=== PATIENT | male | born 1940 ===

== ENCOUNTER 2025-04-15 19:34 | Emergency (ER) | payer MEDICARE, SELFPAY ==
[2025-04-15 19:40] VITALS: BP 151/78; PULSE 84; RESP 20; TEMP 36.7; O2SAT 99
--- NOTE | 2025-04-15 19:54 | ED_ITS ---
HPI - General Adult General Chief complaint: Ear Stated complaint: right ear Source: patient and family Mode of arrival: ambulatory Limitations: no limitations History of Present Illness HPI narrative: Patient presents for evaluation of right ear pain. Symptom onset a few days ago. He has muffled hearing on that side. He denies any drainage from his ear. He does report sinus congestion and a runny nose. No fever, chills, cough, shortness of breath, nausea, vomiting, diarrhea. He did take some Tylenol and ibuprofen for symptoms. Related Data Home Medications ?Medication ?Instructions ?Recorded ?Confirmed ?Last Taken ?Type amlodipine 2.5 mg tablet mg 04/15/25 Unknown History carvedilol 6.25 mg tablet mg 04/15/25 Unknown History hydralazine 25 mg tablet mg 04/15/25 Unknown History Allergies Allergy/AdvReac Type Severity Reaction Status Date / Time No Known Allergies Allergy Verified 04/15/25 19:47 Review of Systems Review of Systems: CONSTITUTIONAL: Denies fever, chills, or sweats. EYES: Denies visual changes, redness, or discharge. ENT: Reports sinus congestion, runny nose, right-sided ear pain and muffled hearing on that side CARDIOVASCULAR: Denies chest pain, palpitations, or edema. RESPIRATORY: Denies cough or dyspnea. GASTROINTESTINAL: Denies abdominal pain, nausea, vomiting, or diarrhea. GENITOURINARY: Denies dysuria or hematuria. SKIN: Denies rash or itching. MUSCULOSKELETAL: Denies back pain, joint pain, or myalgia. NEUROLOGIC: Denies headache, numbness, dizziness, or weakness. PSYCHIATRIC: Denies anxiety or depression. [facility] Past Medical History Medical History Hypertension Surgical History Surgical History Knee joint replacement by other means Family History Family History Father Family history non-contributory Social History Social History Substance use: never Gender identity (if verbalized by the patient): Male Spiritual care concerns: No Exam Narrative: GENERAL: Well-appearing, well-nourished, and in no acute distress. HEAD: Normocephalic, atraumatic. EYES: PERRLA and EOMI. ENT: Nares clear, no rhinorrhea or epistaxis. Mucous membranes moist. Oropharynx without tonsillar hypertrophy exudate or other lesions. Bilateral TMs erythema with effusion present NECK: Supple. No adenopathy or masses. No carotid bruits or JVD CHEST: Clear to auscultation. No respiratory distress. No wheezes rales or rhonchi HEART: Regular rate and rhythm. No murmur heard. Normal peripheral pulses. ABDOMEN: Soft, nontender, nondistended, normal active bowel sounds. EXTREMITIES: Normal range of motion. No edema. SKIN: Warm, dry, no rash. NEURO: No focal deficits. Alert and oriented x3. PSYCH: Normal mood and affect. Course Course Emergency Course: This is an 84-year-old male who presented for evaluation right-sided ear pain. He has evidence of otitis media on exam. Will discharge with Augmentin. Follow-up with primary provider. Go to the ER for worsening symptoms. Patient in agreement with plan of care. Level of Care: Express Care Visit Vital Signs Vital signs: Vital Signs Temperature 36.7 C 04/15/25 19:40 Pulse Rate 04/15/25 19:40 Respiratory Rate 04/15/25 19:40 Blood Pressure 151/78 H 04/15/25 19:40 Pulse Oximetry 99 04/15/25 19:40 Oxygen Delivery Room Air 04/15/25 19:40 Temperature 36.7 C 04/15/25 19:40 Pulse Rate 04/15/25 19:40 Respiratory Rate 04/15/25 19:40 Blood Pressure 151/78 H 04/15/25 19:40 Pulse Oximetry 99 04/15/25 19:40 Oxygen Delivery Room Air 04/15/25 19:40 Medical Decision Making Vital Signs Vital Signs: Vital Signs Temperature 36.7 C 04/15/25 19:40 Pulse Rate 84 04/15/25 19:40 Respiratory Rate 04/15/25 19:40 Blood Pressure 151/78 H 04/15/25 19:40 Pulse Oximetry 99 04/15/25 19:40 Oxygen Delivery Room Air 04/15/25 19:40 Temperature 36.7 C 04/15/25 19:40 Pulse Rate 84 04/15/25 19:40 Respiratory Rate 20 04/15/25 19:40 Blood Pressure 151/78 H 04/15/25 19:40 Pulse Oximetry 99 04/15/25 19:40 Oxygen Delivery Room Air 04/15/25 19:40 Discharge Plan Discharge Clinical Impression: Otitis media Patient Disposition: Home Condition: Stable Instructions: Antibiotic Form, Ear Infection (ED) Patient Language: Kazakh Prescriptions: New amoxicillin-pot clavulanate 875-125 mg tablet 1 tablet PO Q12H Qty: 20 0RF No Action carvedilol 6.25 mg tablet hydralazine 25 mg tablet amlodipine 2.5 mg tablet Follow-up/Referrals: Raiza,MD Lewis [Primary Care Provider] Time of Disposition: 19:53
== END 2025-04-15 19:57 | disposition home or self-care (01) ==
PROVIDERS: Emergency Provider Nurse Practitioner; PCP Internal Medicine Infectious Disease
DX: H66.93 Otitis media, unspecified, bilateral (principal); I10 Essential (primary) hypertension
CPT/HCPCS: 99213; G0463